=== PATIENT | female | born 1970 | race Caucasian/White ===

== ENCOUNTER → 2016-05-08 | Outpatient (CLI) | payer BC ==
--- NOTE | 2016-05-08 10:49 | CR ---
EXAMINATION: Two-view chest (PA and Lateral views). HISTORY: Other signs and symptoms. FINDINGS: The trachea is midline. The cardiomediastinal silhouette is within normal limits. No pulmonary infil trates, effusions or pneumothorax. Osseous structures appear unremarkable. IMPRESSION: No acute cardiopulmonary process.
--- NOTE | 2016-05-08 15:17 | CR ---
EXAMINATION: Bilateral knees HISTORY: Pain COMPARISON: None TECHNIQUE: 2 views bilaterally FINDINGS: There is no acute osseous abnormality or fracture identified. Moderate to severe joint spa ce narrowing within the medial compartments bilaterally. Osteophyte formation is noted within all 3 compartments. No joint effusion or soft tissue swelling. Bone mineralization otherwise appears k[place]. IMPRESSION: Advanced osteoarthritic changes within the knees bilaterally.
== END ==
LOC: MW.CHFP 09:41
PROVIDERS: ATTEND Emergency Medicine
DX: M25.561 Pain in right knee (principal); M25.562 Pain in left knee; R09.89 Other specified symptoms and signs involving the circulatory and respiratory systems; M17.0 Bilateral primary osteoarthritis of knee
CPT/HCPCS: 71020; 71020-26; 73560-26-LT; 73560-26-RT; 73560-LT; 73560-RT

== ENCOUNTER 2018-10-13 11:16 | Emergency (ER) | payer BC ==
[2018-10-13 11:44] VITALS: BP 140/80
--- NOTE | 2018-10-13 12:23 | EDM.PDOC ---
ED HPI GENERAL MEDICAL PROBLEM - General Chief Complaint: Genitourinary Problem Stated Complaint: UTI OR KIDNEY INFECTION Time Seen by Provider: 10/13/18 12:22 Source of Information: Reports: Patient History Limitations: Reports: No Limitations - History of Present Illness INITIAL COMMENTS - FREE TEXT/NARRATIVE: HISTORY AND PHYSICAL: History of present illness: Patient is a 48-year-old female presents the ED with possible UTI. She states she frequently gets UTIs after intercourse so she is on a prophylactic Macrobid that she takes after intercourse. He states that she has been having burning with urination for the past week. She denies fevers, chills, nausea, vomiting, abdominal pain, back pain. Review of systems: As per history of present illness and below otherwise all systems reviewed and negative. Past medical history: As per history of present illness and as reviewed below otherwise noncontributory. Surgical history: As per history of present illness and as reviewed below otherwise noncontributory. Social history: No reported history of drug or alcohol abuse. Family history: As per history of present illness and as reviewed below otherwise noncontributory. Physical exam: General: Patient sitting comfortably in no acute distress and nontoxic appearing HEENT: Atraumatic, normocephalic, pupils reactive, negative for conjunctival pallor or scleral icterus, mucous membranes moist, throat clear, neck supple, nontender, trachea midline. No meningeal signs. Lungs: Clear to auscultation, breath sounds equal bilaterally, chest nontender. Heart: S1S2, regular, negative for clicks, rubs, or overt murmur. Abdomen: Soft, nondistended, nontender. Negative for masses or hepatosplenomegaly. Negative for costovertebral tenderness. No rigidity, rebound , guarding. Pelvis: Stable nontender. Genitourinary: Deferred. Rectal: Deferred. Extremities: Atraumatic, negative for cords or calf pain. Neurovascular unremarkable. Neuro: Awake, alert, oriented. Cranial nerves II through XII unremarkable. Cerebellum unremarkable. Motor and sensory unremarkable throughout. Exam nonfocal. Notes: Diagnostics: UA Therapeutics: [] Prescriptions: Macrobid Impression: UTI Plan: Drink plenty fluids and take antibiotic as instructed Follow up with primary care provider Return to ED as needed as discussed Definitive disposition and diagnosis as appropriate pending reevaluation and review of above. upon urination Pain Score (Numeric/FACES): 5 - Related Data Allergies Allergy/AdvReac Type Severity Reaction Status Date / Time adhesive Allergy Rash Verified 10/13/18 11:46 raw shellfish Allergy Hives Uncoded 10/13/18 11:39 Home Meds: Home Meds Fluticasone/Vilanterol [Breo Ellipta 100-25 MCG Inhalation Kit] 1 each IH WEEKLY 10/13/18 [History] Nitrofurantoin Macrocrystal [Nitrofurantoin] 100 mg PO DAILY PRN 10/13/18 [ History] Nitrofurantoin Monohyd/M-Cryst [Macrobid 100 mg Capsule] 100 mg PO BID 7 Days # 14 capsule 10/13/18 [Rx] Past Medical History HEENT History: Reports: Impaired Vision Cardiovascular History: Reports: None Respiratory History: Reports: None Gastrointestinal History: Reports: None Genitourinary History: Reports: None 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: Musculoskeletal History: Reports: None Neurological History: Reports: None Psychiatric History: Reports: None Endocrine/Metabolic History: Reports: None Hematologic History: Reports: None Immunologic History: Reports: None Oncologic (Cancer) History: Reports: Other (See Below) Other Oncologic History: 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 Dermatologic History: Reports: None - Infectious Disease History Infectious Disease History: Reports: Chicken Pox - Past Surgical History Head Surgeries/Procedures: Reports: None Female Surgical History: Reports: Mastectomy Oncologic Surgical History: Reports: Mastectomy, Other (See Below) Social & Family History - Family History Family Medical History: Noncontributory - Tobacco Use Smoking Status *Q: Never Smoker - Caffeine Use Caffeine Use: Reports: Coffee Caffeine Use Comment: Daily - Recreational Drug Use Recreational Drug Use: No ED ROS GENERAL - Review of Systems Review Of Systems: ROS reveals no pertinent complaints other than HPI. ED EXAM, RENAL/ - Physical Exam Exam: See Below (See dictation) Course - Vital Signs Last Recorded V/S: Last Vital Signs Temp 97.3 F 10/13/18 11:41 Pulse 97 10/13/18 11:41 Resp 18 10/13/18 11:41 BP 140/80 10/13/18 11:41 Pulse Ox 98 10/13/18 11:41 - Orders/Labs/Meds Orders: Active Orders 24 hr Category Date Time Status CULTURE URINE [RM] Stat Lab 10/13/18 11:50 Received Labs: Laboratory Tests 10/13/18 Range/Units 11:50 Urine Color YELLOW Urine Appearance SLT CLOUDY Urine pH 7.0 (5.0-8.0) Ur Specific [place] 1.020 (1.001-1.035) Urine Protein NEGATIVE (NEGATIVE) mg/dL Urine Glucose (UA) NEGATIVE (NEGATIVE) mg/dL Urine Ketones NEGATIVE (NEGATIVE) mg/dL Urine Occult Blood NEGATIVE (NEGATIVE) Urine Nitrite NEGATIVE (NEGATIVE) Urine Bilirubin NEGATIVE (NEGATIVE) Urine Urobilinogen 0.2 (<2.0) EU/dL Ur Leukocyte Esterase MODERATE H (NEGATIVE) Urine RBC 0-1 (0-2/HPF) Urine WBC 6-8 (0-5/HPF) Ur Epithelial Cells MODERATE (NONE-FEW) Amorphous Sediment LIGHT (NEGATIVE) Urine Bacteria 1+ H (NEGATIVE) Urine Mucus LIGHT (NONE-MOD) Departure - Departure Time of Disposition: 12:22 Disposition: Home, Self-Care 01 Condition: Good Clinical Impression: UTI (urinary tract infection) - Discharge Information Prescriptions: Nitrofurantoin Monohyd/M-Cryst [Macrobid 100 mg Capsule] 100 mg PO BID 7 Days # 14 capsule Instructions: Urinary Tract Infection, Adult Referrals: PCP,Unknown [Primary Care Provider] - Forms: ED Department Discharge Additional Instructions: The following information is given to patients seen in the emergency department who are being discharged to home. This information is to outline your options for follow-up care. We provide all patients seen in our emergency department with a follow-up referral. The need for follow-up, as well as the timing and circumstances, are variable depending upon the specifics of your emergency department visit. If you don't have a primary care physician on staff, we will provide you with a referral. We always advise you to contact your personal physician following an emergency department visit to inform them of the circumstance of the visit and for follow-up with them and/or the need for any referrals to a consulting specialist. The emergency department will also refer you to a specialist when appropriate. This referral assures that you have the opportunity for follow-up care with a specialist. All of these measure are taken in an effort to provide you with optimal care, which includes your follow-up. Under all circumstances we always encourage you to contact your private physician who remains a resource for coordinating your care. When calling for follow-up care, please make the office aware that this follow-up is from your recent emergency room visit. If for any reason you are refused follow-up, please contact the [facility] Emergency Department at and asked to speak to the emergency department charge nurse. [facility] [id number] [address] [place] [address] Drink plenty fluids and take antibiotic as instructed Follow up with primary care provider Return to ED as needed as discussed - My Orders Last 24 Hours: My Active Orders 10/13/18 11:50 CULTURE URINE [RM] Stat - Assessment/Plan Last 24 Hours: My Active Orders 10/13/18 11:50 CULTURE URINE [RM] Stat
== END 2018-10-13 12:40 | disposition home or self-care (01) ==
LOC: MW.ED 11:16
DX: N39.0 Urinary tract infection, site not specified (principal); Z91.013 Allergy to seafood; Z91.09 Other allergy status, other than to drugs and biological substances
CPT/HCPCS: 81001; 87086; 99283

== ENCOUNTER 2018-11-26 03:28 | Emergency (ER) | payer BC ==
[2018-11-26] MEDS ORDERED: Fluconazole 150 MG Tab PO ONE (03:50)
[2018-11-26] MEDS ORDERED: Fluconazole 100 MG Tab PO STA (03:54)
--- NOTE | 2018-11-26 03:55 | EDM.PDOC ---
ED HPI GENERAL MEDICAL PROBLEM - General Chief Complaint: Skin Complaint Stated Complaint: RASH Time Seen by Provider: 11/26/18 03:53 Source of Information: Reports: Patient - History of Present Illness INITIAL COMMENTS - FREE TEXT/NARRATIVE: HISTORY AND PHYSICAL: History of present illness: []Patient presents with history of yeast infection, generally prescribed nystatin cream which has been effective in the past however at this time she has yEast infection in the right inguinal fold as well as an abdominal fold other symptoms such as fever nausea vomiting chills sweats Review of systems: As per history of present illness and below otherwise all systems reviewed and negative. Past medical history: As per history of present illness and as reviewed below otherwise noncontributory. Surgical history: As per history of present illness and as reviewed below otherwise noncontributory. Social history: No reported history of drug or alcohol abuse. Family history: As per history of present illness and as reviewed below otherwise noncontributory. Physical exam: HEENT: Atraumatic, normocephalic, pupils reactive, negative for conjunctival pallor or scleral icterus, mucous membranes moist, throat clear, neck supple, nontender, trachea midline. Lungs: Clear to auscultation, breath sounds equal bilaterally, chest nontender. Heart: S1S2, regular, negative for clicks, rubs, or JVD. Abdomen: Soft, nondistended, nontender. Negative for masses or hepatosplenomegaly. Negative for costovertebral tenderness. Pelvis: Stable nontender. Genitourinary: Deferred. Rectal: Deferred. Extremities: Atraumatic, negative for cords or calf pain. Neurovascular unremarkable. Neuro: Awake, alert, oriented. Cranial nerves II through XII unremarkable. Cerebellum unremarkable. Motor and sensory unremarkable throughout. Exam nonfocal. Diagnostics: [Clinical ] Therapeutics: [ nystatin cream and powder Hygiene techniques discussed diflucan 150 mg every other day #5 Keflex 500 by mouth twice a day #20 no refill ] Impression: [ selma infection ] Definitive disposition and diagnosis as appropriate pending reevaluation and review of above. RIGHT INGUINAL AREA Pain Score (Numeric/FACES): 8 - Related Data Allergies Allergy/AdvReac Type Severity Reaction Status Date / Time adhesive Allergy Rash Verified 11/26/18 03:38 raw shellfish Allergy Hives Uncoded 11/26/18 03:38 Home Meds: Home Meds Fluticasone/Vilanterol [Breo Ellipta 100-25 MCG Inhalation Kit] 1 each IH WEEKLY 10/13/18 [History] Sertraline [Zoloft] 25 mg PO DAILY 11/26/18 [History] Past Medical History HEENT History: Reports: Impaired Vision Cardiovascular History: Reports: None Respiratory History: Reports: Bronchitis, Recurrent Gastrointestinal History: Reports: None Genitourinary History: Reports: None 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: Musculoskeletal History: Reports: None Neurological History: Reports: None Psychiatric History: Reports: Anxiety, Depression Endocrine/Metabolic History: Reports: None 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 Hematologic History: Reports: None Immunologic History: Reports: None Oncologic (Cancer) History: Reports: Other (See Below) Other Oncologic History: 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 Dermatologic History: Reports: None - Infectious Disease History Infectious Disease History: Reports: None - Past Surgical History Head Surgeries/Procedures: Reports: None Female Surgical History: Reports: Mastectomy Oncologic Surgical History: Reports: Mastectomy, Other (See Below) Social & Family History - Family History Family Medical History: Noncontributory - Tobacco Use Smoking Status *Q: Never Smoker - Caffeine Use Caffeine Use: Reports: Coffee Caffeine Use Comment: Daily - Recreational Drug Use Recreational Drug Use: No ED ROS GENERAL - Review of Systems Review Of Systems: See Below ED EXAM, SKIN/RASH Exam: See Below Course - Vital Signs Last Recorded V/S: Last Vital Signs Temp 97.5 F 11/26/18 03:39 Pulse 100 11/26/18 03:39 Resp 18 11/26/18 03:39 BP 150/93 H 11/26/18 03:39 Pulse Ox 97 11/26/18 03:39 - Orders/Labs/Meds Meds: Medications Discontinued Medications Generic Name Dose Route Start Last Admin Trade Name Freq PRN Reason Stop Dose Admin Fluconazole 150 mg 11/26/18 03:50 Diflucan PO 11/26/18 03:51 ONETIME ONE Departure - Departure Time of Disposition: 03:55 Disposition: Home, Self-Care 01 Condition: Good Clinical Impression: [place] infection - Discharge Information Referrals: PCP,None [Primary Care Provider] - Additional Instructions: The following information is given to patients seen in the emergency department who are being discharged to home. This information is to outline your options for follow-up care. We provide all patients seen in our emergency department with a follow-up referral. The need for follow-up, as well as the timing and circumstances, are variable depending upon the specifics of your emergency department visit. If you don't have a primary care physician on staff, we will provide you with a referral. We always advise you to contact your personal physician following an emergency department visit to inform them of the circumstance of the visit and for follow-up with them and/or the need for any referrals to a consulting specialist. The emergency department will also refer you to a specialist when appropriate. This referral assures that you have the opportunity for follow-up care with a specialist. All of these measure are taken in an effort to provide you with optimal care, which includes your follow-up. Under all circumstances we always encourage you to contact your private physician who remains a resource for coordinating your care. When calling for follow-up care, please make the office aware that this follow-up is from your recent emergency room visit. If for any reason you are refused follow-up, please contact the [facility] emergency department at and asked to speak to the emergency department charge nurse.
[2018-11-26 04:13] VITALS: BP 117/67; PULSE 88
== END 2018-11-26 04:05 | disposition home or self-care (01) ==
LOC: MW.ED 03:28
DX: B37.9 Candidiasis, unspecified (principal); F32.9 Major depressive disorder, single episode, unspecified; F41.9 Anxiety disorder, unspecified; Z91.013 Allergy to seafood; Z91.048 Other nonmedicinal substance allergy status; Z79.899 Other long term (current) drug therapy
CPT/HCPCS: 99282; A9270

== ENCOUNTER 2021-02-25 20:18 | Emergency (ER) | payer BC ==
[2021-02-25] MEDS ORDERED: Ketorolac 30 MG/ML SDV IM ONE (23:18)
[2021-02-25 23:58] VITALS: BP 134/68; PULSE 84
== END 2021-02-25 23:58 | disposition home or self-care (01) ==
LOC: MW.ED 20:18
DX: S93.602A Unspecified sprain of left foot, initial encounter (principal); S20.212A Contusion of left front wall of thorax, initial encounter; Z91.048 Other nonmedicinal substance allergy status; Z91.013 Allergy to seafood; X50.1XXA Overexertion from prolonged static or awkward postures, initial encounter
CPT/HCPCS: 71101-26-LT; 71101-LT; 73630-26-LT; 73630-LT; 96372; 99283-25; J1885

== ENCOUNTER 2021-07-26 08:17 | Day surgery (SDC) | payer BC ==
[~2021-07-26 08:17] MED LIST: Bupivacaine 0.25% 10 ML SDV ONE; Dexamethasone 4 MG/ML 5 ML MDV ONE; Glycopyrrolate 0.2 MG/ML SDV ONE; Ketorolac 30 MG/ML SDV ONE; Methylene Blue 50 MG/10 ML Ampule ONE; Midazolam 1 MG/ML 2 ML SDV ONE; Octyl 2-Cyanoacrylate 1 Tube ONE; Ondansetron 4 MG/2 ML SDV ONE; Propofol 200 MG/20 ML SDV ONE; Rocuronium 100 MG/10 ML MDV ONE; Scopolamine 1.5 MG Transdermal Patch TOP ONE; Sugammadex Sodium 200 MG/2 ML VIAL ONE; fentaNYL 100 MCG/2 ML SDV ONE
[2021-07-26] MEDS ORDERED: Lactated Ringers 1,000 ML IV SCH (08:30)
[2021-07-26] MEDS ORDERED: HYDROmorphone 1 MG/ML Syringe IVPUSH PRN (08:33)
[2021-07-26] MEDS ORDERED: Naloxone 0.4 MG/ML SDV IVPUSH PRN (08:33)
[2021-07-26] MEDS ORDERED: Ondansetron 4 MG/2 ML SDV IVPUSH PRN (08:33)
[2021-07-26] MEDS ORDERED: fentaNYL 50 MCG/ML SDV IVPUSH PRN (08:33)
[2021-07-26] MEDS ORDERED: Albuterol 0.083% 2.5 MG/3 ML Neb Soln NEB PRN (08:33)
[2021-07-26] MEDS ORDERED: Metoclopramide 10 MG/2 ML SDV IVPUSH PRN (08:33)
[2021-07-26] MEDS ORDERED: Propofol 200 MG/20 ML SDV ONE ×3 (09:57→10:28)
[2021-07-26] MEDS ORDERED: Morphine 4 MG/ML VIAL ONE (11:00)
[2021-07-26] MEDS ORDERED: Lidocaine 1% 5 ML VIAL ONE (11:09)
[2021-07-26 12:41] VITALS: BP 132/61; PULSE 81
== END 2021-07-26 13:35 | disposition home or self-care (01) ==
LOC: MW.SDS 08:17
PROVIDERS: ATTEND Obstetrics & Gynecology
DX: N90.4 Leukoplakia of vulva (principal); N90.89 Other specified noninflammatory disorders of vulva and perineum; F41.9 Anxiety disorder, unspecified; F32.A Depression, unspecified; Z98.890 Other specified postprocedural states; Z91.013 Allergy to seafood; Z87.891 Personal history of nicotine dependence; Z79.899 Other long term (current) drug therapy
CPT/HCPCS: 36415; 58558; 58662; 84703; 85027; J0131; J1100; J1885; J2250; J2270; J2704; J3010; J3490; J7030; J7120; 00840; A9270-GY; J2405

== ENCOUNTER 2021-11-19 11:37 | Emergency (ER) | payer BC ==
[2021-11-19] MEDS ORDERED: Sodium Chloride 0.9% 1,000 ML IV ONE (12:22)
[2021-11-19] MEDS ORDERED: Cetirizine 10 MG Tab PO ONE (12:22)
[2021-11-19] MEDS ORDERED: diphenhydrAMINE 50 MG/ML SDV IVPUSH ONE (12:22)
== END 2021-11-19 14:55 ==
LOC: MW.ED 11:37
DX: L50.9 Urticaria, unspecified (principal); F41.9 Anxiety disorder, unspecified; Z79.899 Other long term (current) drug therapy
CPT/HCPCS: 96374; 99283; A9270; J1200; J7030

== ENCOUNTER 2022-10-26 10:14 | Day surgery (SDC) | payer BC ==
[~2022-10-26 10:14] MED LIST changes: -Bupivacaine 0.25% 10 ML SDV ONE; -Dexamethasone 4 MG/ML 5 ML MDV ONE; -Glycopyrrolate 0.2 MG/ML SDV ONE; -Ketorolac 30 MG/ML SDV ONE; +Lactated Ringers 1,000 ML IV SCH; +Lidocaine 2% 5 ML SDV ONE; -Methylene Blue 50 MG/10 ML Ampule ONE; -Midazolam 1 MG/ML 2 ML SDV ONE; -Octyl 2-Cyanoacrylate 1 Tube ONE; -Ondansetron 4 MG/2 ML SDV ONE; -Propofol 200 MG/20 ML SDV ONE; -Rocuronium 100 MG/10 ML MDV ONE; -Scopolamine 1.5 MG Transdermal Patch TOP ONE; +Sodium Chloride 0.9% 10 ML Syringe FLUSH PRN; +Sodium Chloride 0.9% 2.5 ML Syringe FLUSH PRN; +Sodium Chloride 0.9% 20 ML SDV IV PRN; -Sugammadex Sodium 200 MG/2 ML VIAL ONE; -fentaNYL 100 MCG/2 ML SDV ONE; +propofoL 50 ML ONE
[2022-10-26] MEDS ORDERED: propofoL 50 ML ONE (11:17)
[2022-10-26 12:11] VITALS: BP 120/84; PULSE 85
== END 2022-10-26 12:20 | disposition home or self-care (01) ==
LOC: MW.SDS 10:14
PROVIDERS: ATTEND Surgery
DX: D50.9 Iron deficiency anemia, unspecified (principal); K29.50 Unspecified chronic gastritis without bleeding; K31.89 Other diseases of stomach and duodenum; K44.9 Diaphragmatic hernia without obstruction or gangrene; R19.7 Diarrhea, unspecified; F41.8 Other specified anxiety disorders; J45.30 Mild persistent asthma, uncomplicated; D05.00 Lobular carcinoma in situ of unspecified breast; F43.21 Adjustment disorder with depressed mood; F32.A Depression, unspecified; E66.01 Morbid (severe) obesity due to excess calories; N20.0 Calculus of kidney; K21.9 Gastro-esophageal reflux disease without esophagitis; M17.0 Bilateral primary osteoarthritis of knee; D64.9 Anemia, unspecified; J30.2 Other seasonal allergic rhinitis; G47.9 Sleep disorder, unspecified; Z91.013 Allergy to seafood; Z68.43 Body mass index [BMI] 50.0-59.9, adult; Z79.899 Other long term (current) drug therapy; Z98.82 Breast implant status; Z87.891 Personal history of nicotine dependence; Z91.048 Other nonmedicinal substance allergy status; Z91.040 Latex allergy status
CPT/HCPCS: 43239; 45380; J2704; J7120; 00813; J3490